=== PATIENT | male | born 1955 | race Caucasian/White ===

== ENCOUNTER 2023-02-24 02:02 | Emergency (ER) | payer OTHER, MEDICARE ==
[2023-02-24] MEDS ORDERED: Sodium Chloride 0.9% 1,000 ML IV ONE (02:03)
[2023-02-24] MEDS ORDERED: Sodium Chloride 0.9% 10 ML Syringe FLUSH PRN (02:03)
[2023-02-24 02:32] LABS: BASOPHILS ABSOLUTE AUTO 0.02 K/uL (0.00-0.20); BASOPHILS PERCENT AUTO 0.2 % (0.0-2.0); EOSINOPHILS ABSOLUTE AUTO 0.29 K/uL (0.00-0.50); EOSINOPHILS PERCENT AUTO 2.9 % (0.0-5.0); HEMATOCRIT 42.2 % (39.0-49.0); HEMOGLOBIN 14.4 g/dL (13.1-16.8); MEAN CORPUSCULAR HEMOGLOBIN 31.6 pg (28.2-33.3); MEAN CORPUSCULAR HGB CONC 34.1 g/dL (31.7-36.0); MEAN CORPUSCULAR VOLUME 92.7 fL (84.0-98.0); MONOCYTES ABSOLUTE AUTO 1.42 K/uL (0.00-1.00); MONOCYTES PERCENT AUTO 14.2 % (2.0-14.0); NEUTROPHILS ABSOLUTE AUTO 6.87 K/uL (1.40-7.00); NEUTROPHILS PERCENT AUTO 68.7 % (45.0-80.0); PLATELET COUNT,PLT 229 K/uL (150-350); RED BLOOD CELL COUNT 4.55 M/uL (4.33-5.41); RED CELL DISTRIBUTION WIDTH 13.4 % (11.2-14.1)
[2023-02-24 02:52] LABS: LACTIC ACID 0.8 mmol/L (0.4-2.0)
[2023-02-24 02:55] LABS: ALBUMIN 2.8 g/dL (3.4-5.0); ANION GAP 8.2 meq/L (7-15); BILIRUBIN TOTAL 0.6 mg/dL (0.2-1.0); CARBON DIOXIDE,CO2 26.8 mmol/L (21.0-32.0); CREATININE 0.81 mg/dL (0.51-1.17); EST CRCL DRUG DOSING (CG) 86.07 mL/min; POTASSIUM,K 3.8 mmol/L (3.5-5.1); PROTEIN TOTAL,TP 7.1 g/dL (6.4-8.2)
[2023-02-24] MEDS ORDERED: ceFAZolin 1 GM in Sodium Chloride 0.9% 100 ML IV ONE (03:31)
== END 2023-02-24 08:05 ==
LOC: LL.ED 02:02
DX: L03.114 Cellulitis of left upper limb (principal); E78.00 Pure hypercholesterolemia, unspecified; I10 Essential (primary) hypertension; M19.90 Unspecified osteoarthritis, unspecified site; E11.40 Type 2 diabetes mellitus with diabetic neuropathy, unspecified; R00.0 Tachycardia, unspecified; Z79.82 Long term (current) use of aspirin; Z79.899 Other long term (current) drug therapy; Z79.84 Long term (current) use of oral hypoglycemic drugs; Z88.8 Allergy status to other drugs, medicaments and biological substances
CPT/HCPCS: 36415; 71045; 80053; 83605; 85025; 86140; 87040; 93005; 96361; 96365; 99285-25; J0690; J3490; J7030

== ENCOUNTER 2023-08-06 09:28 | Emergency (ER) | payer MEDICARE, OTHER ==
[2023-08-06] MEDS ORDERED: Lidocaine 2% HCl 11 ML Jelly Filled Syringe TOP ONE (09:38)
[2023-08-06 10:07] LABS: APPEARANCE,URINE CLEAR; BILIRUBIN,URINE NEGATIVE (NEGATIVE); COLOR,URINE DARK YELLOW; GLUCOSE,URINE NEGATIVE (NEGATIVE); KETONES,URINE TRACE mg/dL (NEGATIVE); LEUKOCYTE ESTERASE,URINE NEGATIVE (NEGATIVE); NITRITE,URINE NEGATIVE (NEGATIVE); OCCULT BLOOD,URINE LARGE (NEGATIVE); PH,URINE 6.5 (5.0-9.0); PROTEIN,URINE NEGATIVE (NEGATIVE)
[2023-08-06 10:14] LABS: BACTERIA,URINE NOT SEEN /HPF (NONE TO FEW); EPITHELIAL CELLS,URINE FEW /LPF; RBC,URINE >100 /HPF; WBC,URINE 0-5 /HPF
== END 2023-08-06 11:00 ==
LOC: LL.ED 09:28
DX: T83.098A Other mechanical complication of other urinary catheter, initial encounter (principal); I10 Essential (primary) hypertension; E78.00 Pure hypercholesterolemia, unspecified; E11.9 Type 2 diabetes mellitus without complications; M19.90 Unspecified osteoarthritis, unspecified site; Z88.8 Allergy status to other drugs, medicaments and biological substances; Z79.899 Other long term (current) drug therapy; Z79.82 Long term (current) use of aspirin
CPT/HCPCS: 51702; 81001; 99284; A9270-GY

== ENCOUNTER 2023-08-10 16:05 | Emergency (ER) | payer MEDICARE, OTHER ==
[2023-08-10 16:41] LABS: BASOPHILS ABSOLUTE AUTO 0.03 K/uL (0.00-0.20); BASOPHILS PERCENT AUTO 0.3 % (0.0-2.0); EOSINOPHILS ABSOLUTE AUTO 0.59 K/uL (0.00-0.50); EOSINOPHILS PERCENT AUTO 6.1 % (0.0-5.0); HEMATOCRIT 42.1 % (39.0-49.0); HEMOGLOBIN 14.2 g/dL (13.1-16.8); LYMPHOCYTES ABSOLUTE AUTO 1.72 K/uL (0.50-3.50); LYMPHOCYTES PERCENT AUTO 17.8 % (10.0-50.0); MEAN CORPUSCULAR HEMOGLOBIN 31.2 pg (28.2-33.3); MEAN CORPUSCULAR HGB CONC 33.7 g/dL (31.7-36.0); MEAN CORPUSCULAR VOLUME 92.5 fL (84.0-98.0); MONOCYTES ABSOLUTE AUTO 0.95 K/uL (0.00-1.00); MONOCYTES PERCENT AUTO 9.8 % (2.0-14.0); NEUTROPHILS ABSOLUTE AUTO 6.38 K/uL (1.40-7.00); PLATELET COUNT,PLT 212 K/uL (150-350); RED BLOOD CELL COUNT 4.55 M/uL (4.33-5.41); RED CELL DISTRIBUTION WIDTH 14.1 % (11.2-14.1); WHITE BLOOD CELL COUNT,WBC 9.7 K/uL (4.0-10.2)
[2023-08-10 16:43] LABS: ALBUMIN 3.2 g/dL (3.4-5.0); ANION GAP 8.3 meq/L (7-15); BILIRUBIN TOTAL 0.4 mg/dL (0.2-1.0); CALCIUM 8.8 mg/dL (8.5-10.1); CARBON DIOXIDE,CO2 28.7 mmol/L (21.0-32.0); CREATININE 0.79 mg/dL (0.51-1.17); EST CRCL DRUG DOSING (CG) 87.01 mL/min; POTASSIUM,K 3.9 mmol/L (3.5-5.1); PROTEIN TOTAL,TP 6.4 g/dL (6.4-8.2)
[2023-08-10 17:13] LABS: APPEARANCE,URINE CLOUDY; BILIRUBIN,URINE SMALL (NEGATIVE); COLOR,URINE RED; GLUCOSE,URINE NEGATIVE (NEGATIVE); KETONES,URINE TRACE mg/dL (NEGATIVE); LEUKOCYTE ESTERASE,URINE NEGATIVE (NEGATIVE); NITRITE,URINE POSITIVE (NEGATIVE); OCCULT BLOOD,URINE LARGE (NEGATIVE); PROTEIN,URINE >=300 mg/dL (NEGATIVE)
[2023-08-10] MEDS ORDERED: Iopamidol 612 MG/ML 100 ML Bottle IVPUSH ONE (17:20)
[2023-08-10 17:23] LABS: BACTERIA,URINE RARE /HPF (NONE TO FEW); EPITHELIAL CELLS,URINE RARE /LPF; RBC,URINE >100 /HPF; WBC,URINE 0-5 /HPF
[2023-08-10] MEDS ORDERED: Oxybutynin 5 MG Tab PO STA (19:39)
== END 2023-08-10 19:55 ==
LOC: LL.ED 16:05
DX: R31.0 Gross hematuria (principal); E78.00 Pure hypercholesterolemia, unspecified; I10 Essential (primary) hypertension; E11.9 Type 2 diabetes mellitus without complications; Z88.8 Allergy status to other drugs, medicaments and biological substances; Z79.84 Long term (current) use of oral hypoglycemic drugs; Z79.899 Other long term (current) drug therapy
CPT/HCPCS: 36415; 74177; 80053; 81001; 85025; 99284; A9270-GY; Q9967